=== PATIENT | male | born 1980 | race Hispanic/Latino ===

== ENCOUNTER 2017-01-03 22:03 | Emergency (ER) | payer SELFPAY ==
--- NOTE | 2017-01-03 23:39 | RAD ---
RIGHT SHOULDER THREE VIEWS: Date: 01-03-17 FINDINGS: No fracture, dislocation, or AC joint widening was seen. There was no acute traumatic change. IMPRESSION: No acute finding. POS: HOME
== END 2017-01-03 22:45 | disposition home or self-care (01) ==
LOC: BURERS 22:03
DX: S43.401A Unspecified sprain of right shoulder joint, initial encounter (principal); W17.89XA Other fall from one level to another, initial encounter
CPT/HCPCS: 96372; J2270

== ENCOUNTER 2020-02-10 10:19 | Emergency (ER) | payer BC, SELFPAY ==
[2020-02-10] MEDS ORDERED: Ketorolac Tromethamine 60 MG/2 ML VIAL ONE (11:07)
--- NOTE | 2020-02-11 07:47 | RAD ---
RIGHT FEMUR: Date: 02/10/2020 AP and lateral views were provided covering the entire femur. Comparison is made with 11/08/2011 knee films that were done preoperatively. The patient appears to have ACL reconstruction in the past. The re is some lucency around the proximal screw, but I do not see any acute bony changes. There did not appear to be a large joint effusion. The articular surfaces are smooth. IMPRESSION: No acute bony findings. If pain persists, then a MRI would probably be necessary to rule out an inter nal derangement. POS: HOME
== END 2020-02-10 12:04 | disposition home or self-care (01) ==
LOC: BURERS 10:19
DX: S83.91XA Sprain of unspecified site of right knee, initial encounter (principal); I10 Essential (primary) hypertension; F41.9 Anxiety disorder, unspecified; F17.210 Nicotine dependence, cigarettes, uncomplicated; Z79.899 Other long term (current) drug therapy; X50.1XXA Overexertion from prolonged static or awkward postures, initial encounter
CPT/HCPCS: 96372; J1885

== ENCOUNTER 2022-10-17 20:40 | Emergency (ER) | payer BC, SELFPAY ==
[2022-10-17] MEDS ORDERED: Cyclobenzaprine 10 MG TAB ONE (21:20)
[2022-10-17] MEDS ORDERED: Ibuprofen 800 MG TAB ONE (21:20)
== END 2022-10-17 21:30 | disposition home or self-care (01) ==
LOC: BURERS 20:40
DX: S76.911A Strain of unspecified muscles, fascia and tendons at thigh level, right thigh, initial encounter (principal); I10 Essential (primary) hypertension; Z87.891 Personal history of nicotine dependence; W18.39XA Other fall on same level, initial encounter
CPT/HCPCS: 99283

== ENCOUNTER 2023-11-25 08:44 | Emergency (ER) | payer SELFPAY ==
[2023-11-25] MEDS ORDERED: Lidocaine 1% PF 5 ML VIAL ONE (09:00)
[2023-11-25] MEDS ORDERED: Boostrix 0.5 ML (Tdap) VIAL (>/=7 yrs of age) ONE (09:01)
== END 2023-11-25 10:23 | disposition home or self-care (01) ==
LOC: BURERS 08:44
DX: S61.211A Laceration without foreign body of left index finger without damage to nail, initial encounter (principal); I10 Essential (primary) hypertension; W26.8XXA Contact with other sharp object(s), not elsewhere classified, initial encounter; Z23 Encounter for immunization; Z87.891 Personal history of nicotine dependence
CPT/HCPCS: 90471; 90715

== ENCOUNTER 2024-12-03 20:48 | Emergency (ER) | payer SELFPAY | END 2024-12-03 21:37 | disposition home or self-care (01) | LOC: BURERS 20:48 | DX: Z53.21 Procedure and treatment not carried out due to patient leaving prior to being seen by health care provider (principal) ==

== ENCOUNTER 2025-05-27 03:25 | Emergency (ER) | payer OTHER, SELFPAY ==
[2025-05-27] MEDS ORDERED: Famotidine 20 MG TAB ONE (03:55)
[2025-05-27] MEDS ORDERED: diphenhydrAMINE 50 MG/ML VIAL ONE (03:55)
== END 2025-05-27 04:20 | disposition home or self-care (01) ==
LOC: BURERS 03:25
DX: L23.9 Allergic contact dermatitis, unspecified cause (principal); I10 Essential (primary) hypertension; F17.210 Nicotine dependence, cigarettes, uncomplicated
CPT/HCPCS: 96372; 99282; J1200; J2919